=== PATIENT | female | born 1950 ===

== ENCOUNTER 2019-01-02 17:41 | Outpatient (CLI) | payer MEDICARE, MEDICAID | END 2019-01-02 17:42 | disposition home or self-care (01) | LOC: C.SLEEP 17:42 | DX: G47.33 Obstructive sleep apnea (adult) (pediatric) (principal) ==

== ENCOUNTER 2019-01-03 06:34 | Outpatient (CLI) | payer MEDICARE, MEDICAID | END 2019-01-03 06:35 | disposition home or self-care (01) | LOC: C.LAB 06:34 ==

== ENCOUNTER → 2019-02-13 | Outpatient (CLI) | payer MEDICARE, MEDICAID | END | disposition home or self-care (01) | LOC: C.LAB 09:54 | DX: E11.9 Type 2 diabetes mellitus without complications (principal); I10 Essential (primary) hypertension; E78.5 Hyperlipidemia, unspecified; Z13.9 Encounter for screening, unspecified; M25.561 Pain in right knee ==

== ENCOUNTER 2019-02-20 09:25 | Outpatient (CLI) | payer MEDICARE, MEDICAID | END 2019-02-20 09:26 | disposition home or self-care (01) | LOC: C.MAMMO 09:26 ==